=== PATIENT | male | born 1990 | race Caucasian/White ===

== ENCOUNTER 2018-03-09 08:27 | Emergency (ER) | payer BC ==
[2018-03-09] MEDS: AZITHROMYCIN 250 MG TAB PO (08:56)
[2018-03-09] MEDS: IBUPROFEN 600 MG TAB PO (08:57)
== END 2018-03-09 09:09 | disposition home or self-care (01) ==
LOC: FTE 08:27
DX: J06.9 Acute upper respiratory infection, unspecified (principal); F17.210 Nicotine dependence, cigarettes, uncomplicated
CPT/HCPCS: 99283